=== PATIENT | male | born 1945 | race Caucasian/White ===

== ENCOUNTER → 2016-12-03 | Outpatient (CLI) | payer OTHER | LOC: MMPC 11:11 | PROVIDERS: ATTEND Physician Assistant Medical | DX: J98.8 Other specified respiratory disorders (principal); L30.9 Dermatitis, unspecified | CPT/HCPCS: 99213; G0463 ==

== ENCOUNTER → 2017-02-15 | Outpatient (CLI) | payer OTHER ==
--- NOTE | 2017-02-15 12:40 | EKG ---
[address] [address] Measurements Intervals [place] Rate: 91 P: 37 WI: 183 QRS: 45 QRSD: 105 T: 3 QT: 360 QTc: 409 Interpretive Statements SINUS RHYTHM No previous ECG available for comparison Electronically Signed On 02-15-17 15:31:35 MDT by Mir Silva [email or web address]
[2017-02-15 12:48] LABS: BILIRUBIN,URINE NEGATIVE (NEG); CLARITY,URINE CLEAR (CLEAR); COLOR,URINE YELLOW; GLUCOSE, URINE (UA) NEGATIVE (NEG); NITRATE,URINE NEGATIVE (NEG); OCCULT BLOOD,URINE NEGATIVE (NEG); PROTEIN,URINE NEGATIVE (NEG); UROBILINOGEN,URINE 0.2 mg/dL (0.2); WBC,URINE 0-3
--- NOTE | 2017-02-15 12:53 | DI ---
PA /LATERAL CHEST X-RAY, 02/15/2017 12:15 PM : Clinical History: Hypertension. GERD. Cough. Previous exposure to asbestos. Previous Exam: None at this facility. There is no acute soft tissue or bony abnormality. There is a calcific density in the left scapula ju st inferior to the scapular spine measuring 10 mm. This probably is a bone island. Heart size is norm al. Lungs are clear. Mediastinal structures are normal. There are no pulmonary nodules. Reading: Normal chest x-ray.
[2017-02-15 13:01] LABS: URINE SAMPLE TYPE CLEAN CATCH URINE
== END ==
LOC: LAB 12:11
PROVIDERS: ATTEND Orthopaedic Surgery
DX: M17.11 Unilateral primary osteoarthritis, right knee (principal); I10 Essential (primary) hypertension; R05 Cough; K21.9 Gastro-esophageal reflux disease without esophagitis; Z77.090 Contact with and (suspected) exposure to asbestos
CPT/HCPCS: 71020; 81001; 93005; 93010